=== PATIENT | female | born 1955 | race Two or more races ===

== ENCOUNTER 2016-05-18 08:46 | Emergency (ER) | payer SELFPAY ==
--- NOTE | 2016-05-18 10:33 | ER Document Report ---
ED Neck/Back Problem - General Chief Complaint: Back Pain Stated Complaint: BACK PAIN Time seen by provider: 10:28 Mode of Arrival: Ambulatory Information source: Patient Notes: The patient is a 61-year-old female with a history of hypertension, diabetes, diabetic neuropathy and trigeminal neuralgia. The patient presents to the emergency room with a 2 year history of low back pain radiating down the left leg. She has been evaluated by her primary care doctor ([facility]) but presents to the emergency room with persistent pain. Patient denies fever, chills. The patient denies numbness to the groin area. The patient denies urinary retention or urinary incontinence. The patient denies fecal incontinence. The patient does report having numbness to both feet distally and that this is not new. TRAVEL OUTSIDE OF THE [place] IN LAST 30 DAYS: No - HPI Patient complains to provider of: Pain Onset: Other - Last 2 years Where: Home Onset: Gradual Timing: Waxing and waning Quality of pain: Dull Severity: Moderate Pain Level: 2 Context: Bending Recent injury: No Associated symptoms: Lower back pain. denies: Incontinence, Motor loss, Unable to urinate, Upper back pain Exacerbated by: Sitting position Relieved by: Nothing Similar symptoms previously: Yes Recently seen / treated by doctor: Yes - Related Data Allergies/Adverse Reactions: Unable to Assess Allergy (Unverified 05/18/16 08:58) Past Medical History - General Information source: Patient - Social History Smoking Status: Never Smoker Cigarette use (# per day): No Chew tobacco use (# tins/day): No Frequency of alcohol use: None Drug Abuse: None Lives with: Family Family History: Reviewed & Not Pertinent Patient has suicidal ideation: No Patient has homicidal ideation: No - Past Medical History Cardiac Medical History: Reports: Hx Hypertension Endocrine Medical History: Reports: Hx Diabetes Mellitus Type 2 Renal/ Medical History: Denies: Hx Peritoneal Dialysis - Immunizations Hx Diphtheria, Pertussis, Tetanus Vaccination: No Review of Systems - Review of Systems Constitutional: denies: Chills, Fever EENT: No symptoms reported Cardiovascular: No symptoms reported Respiratory: No symptoms reported Gastrointestinal: No symptoms reported Genitourinary: No symptoms reported Female Genitourinary: No symptoms reported Musculoskeletal: See HPI Skin: No symptoms reported Hematologic/Lymphatic: No symptoms reported Neurological/Psychological: No symptoms reported Physical Exam - Vital signs Vitals: Temp Pulse Resp BP Pulse Ox 97.8 F 63 16 150/89 H 96 05/18/16 08:53 05/18/16 08:53 05/18/16 08:53 05/18/16 08:53 05/18/16 08:53 Notes: Physical exam: The patient is accompanied by a female family member. Translation is obtained through the family member. GENERAL: 61-year-old female, alert and oriented 3, no acute distress HEAD: Atraumatic, normocephalic. EYES: Pupils equal round and reactive to light, extraocular movements intact, sclera anicteric, conjunctiva are normal. ENT: TMs normal, nares patent, oropharynx clear without exudates. Moist mucous membranes. NECK: Normal range of motion, supple without lymphadenopathy or JVD. LUNGS: Breath sounds clear to auscultation bilaterally and equal. No wheezes rales or rhonchi. HEART: Regular rate and rhythm without murmurs, rubs or gallops. ABDOMEN: Soft, normoactive bowel sounds. No tenderness to palpation. No guarding, no rebound. No masses appreciated. EXTREMITIES: Normal range of motion, no pitting or edema. No clubbing or cyanosis. NEUROLOGICAL: Cranial nerves II through XII grossly intact. Motor 5 over 5, sensory reveals some subjective numbness in a stocking distribution to the lower legs, reflexes are symmetrical, plantars are downgoing,. PSYCH: Normal mood, normal affect. SKIN: Warm, Dry, normal turgor, no rashes or lesions noted. The patient does have good pulses distally and good cap refill to the feet. Course - Vital Signs Vital signs: Temp Pulse Resp BP Pulse Ox 97.6 F 61 20 148/95 H 97 05/18/16 13:04 05/18/16 13:04 05/18/16 13:04 05/18/16 13:04 05/18/16 13:04 Discharge - Discharge Clinical Impression: acute exacerbation of chronic back pain, radiculopathy Condition: Stable Disposition: HOME, SELF-CARE Instructions: Warm Packs ([facility]), Oral Narcotic Medication ([facility]), Low Back Pain ( [facility]) Additional Instructions: Recommendations: Take pain medicine as prescribed. This is a narcotic and can make you constipated so take a stool softener with the pain medicine. See the narcotic instructions below. Heating pads to the lower back Follow-up with a back surgeon in [place] for evaluation of your back pain. You may require an outpatient MRI and then may be some nonsurgical interventions. Dr. Shiva Linn ([facility]) Office number: [phone] [address] [place] [address] The pain medicine you're taking prescribed as a narcotic. There are several important things you should know about this medicine: 1. This medicine contains Tylenol: It is important that you do not take Tylenol (or acetaminophen) while on this medicine. Tylenol is metabolized by the liver and taking too much Tylenol (acetaminophen) can lay to liver damage and even liver failure. 2. Taking narcotics for too long can lead to physical and mental dependence. Take this medicine only if really needed and in the lowest quantity to achieve pain relief. 3. Do not drink alcohol while on this medicine. Alcohol interacts with narcotics and the combination can be dangerous. 4. Do not drive or operate machinery while on this medicine. 5. Narcotics do cause constipation, so drink plenty of fluids and daily stool softeners. Prescriptions: Docusate Sodium [Colace 100 mg Capsule] 100 mg PO DAILY #30 capsule Oxycodone HCl/Acetaminophen [Percocet 5-325 mg Tablet] 1 - 2 tab PO ASDIR PRN # 25 tablet PRN Reason:
[2016-05-18 13:08] VITALS: BP 148/95
== END 2016-05-18 13:06 | disposition home or self-care (01) ==
LOC: ER 08:46
DX: G89.29 Other chronic pain (principal); M54.9 Dorsalgia, unspecified; M54.10 Radiculopathy, site unspecified; I10 Essential (primary) hypertension; E11.9 Type 2 diabetes mellitus without complications
CPT/HCPCS: 72110; 99283

== ENCOUNTER → 2016-06-08 | Outpatient (CLI) | payer MEDICAID ==
[2016-06-08 09:31] LABS: ABSOLUTE EOSINOPHILS # (AUTO) 0.2 10^3/uL (0.0-0.6); ABSOLUTE LYMPHOCYTES (AUTO) 1.6 10^3/uL (0.5-4.7); ABSOLUTE MONOCYTES (AUTO) 0.4 10^3/uL (0.1-1.4); ABSOLUTE NEUT (AUTO) 4.6 10^3/uL (1.7-8.2); BASOPHILS % (AUTO) 0.7 % (0-2); EOSINOPHILS % (AUTO) 2.4 % (0-6); HEMATOCRIT 40.6 % (36.0-47.0); HEMOGLOBIN 13.4 g/dL (12.0-15.5); HGB HCT DIFFERENCE -0.4; LYMPHOCYTES % (AUTO) 23.1 % (13-45); MEAN CORPUSCULAR HEMOGLOBIN 29.2 pg (27.0-33.4); MEAN CORPUSCULAR HGB CONC 33.1 g/dL (32.0-36.0); MEAN CORPUSCULAR VOLUME 88 fl (80-97); MONOCYTES % (AUTO) 6.2 % (3-13); RED BLOOD COUNT 4.61 10^6/uL (3.72-5.28); RED CELL DISTRIBUTION WIDTH 14.4 % (11.5-14.0); SEGMENTED NEUTROPHILS % (AUTO) 67.6 % (42-78); WHITE BLOOD COUNT 6.8 10^3/uL (4.0-10.5)
[2016-06-08 10:06] LABS: ALANINE AMINOTRANSFERASE 53 U/L (9-52); ALBUMIN 4.2 g/dL (3.5-5.0); ALKALINE PHOSPHATASE 103 U/L (38-126); ANION GAP 13 (5-19); ASPARTATE AMINO TRANSFERASE 41 U/L (14-36); BILIRUBIN,DIRECT 0.3 mg/dL (0.0-0.4); BILIRUBIN,TOTAL 0.8 mg/dL (0.2-1.3); BLOOD UREA NITROGEN 13 mg/dL (7-20); CALCIUM 9.5 mg/dL (8.4-10.2); CARBON DIOXIDE 27 mmol/L (22-30); CHLORIDE 105 mmol/L (98-107); CREATININE RESULT 0.72 mg/dL (0.52-1.25); Direct HDL 75 mg/dL (>40); GLUCOSE 120 mg/dL (75-110); POTASSIUM 4.3 mmol/L (3.6-5.0); SODIUM 145.1 mmol/L (137-145); TOTAL PROTEIN 7.2 g/dL (6.3-8.2); TRIGLYCERIDES 112 mg/dL (<150)
[2016-06-08 10:17] LABS: DIRECT LDL 109 mg/dL (<100)
== END ==
LOC: OD 08:55
PROVIDERS: ATTEND Family Medicine Geriatric Medicine
DX: E11.9 Type 2 diabetes mellitus without complications (principal); I10 Essential (primary) hypertension; E78.5 Hyperlipidemia, unspecified; R51 Headache; Z79.899 Other long term (current) drug therapy
CPT/HCPCS: 36415; 80053; 80061; 82043; 82570; 83036; 84443; 85025

== ENCOUNTER → 2016-06-25 | Outpatient (CLI) | payer MEDICAID ==
[2016-06-25 11:30] LABS: ALANINE AMINOTRANSFERASE 46 U/L (9-52); ASPARTATE AMINO TRANSFERASE 38 U/L (14-36)
== END ==
LOC: OD 09:35
PROVIDERS: ATTEND Family Medicine Geriatric Medicine
DX: Z79.899 Other long term (current) drug therapy (principal)
CPT/HCPCS: 36415; 84450; 84460

== ENCOUNTER → 2017-08-09 | Outpatient (CLI) | payer SELFPAY ==
[2017-08-09 11:07] LABS: ABSOLUTE EOSINOPHILS # (AUTO) 0.1 10^3/uL (0.0-0.6); ABSOLUTE LYMPHOCYTES (AUTO) 1.8 10^3/uL (0.5-4.7); ABSOLUTE MONOCYTES (AUTO) 0.3 10^3/uL (0.1-1.4); ABSOLUTE NEUT (AUTO) 2.5 10^3/uL (1.7-8.2); EOSINOPHILS % (AUTO) 2.3 % (0-6); HEMOGLOBIN 13.3 g/dL (12.0-15.5); LYMPHOCYTES % (AUTO) 37.2 % (13-45); MEAN CORPUSCULAR HEMOGLOBIN 29.2 pg (27.0-33.4); MEAN CORPUSCULAR HGB CONC 33.2 g/dL (32.0-36.0); MEAN CORPUSCULAR VOLUME 88 fl (80-97); MONOCYTES % (AUTO) 6.6 % (3-13); PLATELET COUNT 145 10^3/uL (150-450); RED BLOOD COUNT 4.55 10^6/uL (3.72-5.28); RED CELL DISTRIBUTION WIDTH 14.7 % (11.5-14.0); SEGMENTED NEUTROPHILS % (AUTO) 52.9 % (42-78); TOTAL CELLS COUNTED % (AUTO) 100 %; WHITE BLOOD COUNT 4.8 10^3/uL (4.0-10.5)
--- NOTE | 2017-08-09 11:08 | RADIOLOGY REPORT (SQ) ---
EXAM DESCRIPTION: KNEE LEFT 4 VIEWS COMPLETED DATE/TIME: 08/09/2017 10:55 am REASON FOR STUDY: PAIN IN LEFT KNEE M25.562 PAIN IN LEFT KNEE COMPARISON: None. NUMBER OF VIEWS: Four views. TECHNIQUE: AP, lateral, and both oblique radiographic images acquired of the left knee. LIMITATIONS: None. FINDINGS: MINERALIZATION: Normal. BONES: No acute fracture or dislocation. No worrisome bone lesions. JOINT: There is narrowing of the medial joint compartment with marginal osteophytes. Large posterior patellar spurs are present. There is no joint effusion. SOFT TISSUES: No soft tissue swelling. No radio-opaque foreign body. OTHER: No other significant finding. IMPRESSION: Degenerative joint disease in the medial and patellofemoral compartments. TECHNICAL DOCUMENTATION: JOB ID: [id number] [employer]- All Rights Reserved Reading location - IP/workstation name: [email or web address]
[2017-08-09 11:37] LABS: ALANINE AMINOTRANSFERASE 35 U/L (9-52); ALBUMIN 3.9 g/dL (3.5-5.0); ALKALINE PHOSPHATASE 92 U/L (38-126); AMYLASE 67 U/L (30-110); ANION GAP 11 (5-19); ASPARTATE AMINO TRANSFERASE 29 U/L (14-36); BILIRUBIN,DIRECT 0.3 mg/dL (0.0-0.4); BILIRUBIN,TOTAL 0.3 mg/dL (0.2-1.3); BLOOD UREA NITROGEN 17 mg/dL (7-20); CALCIUM 9.4 mg/dL (8.4-10.2); CARBON DIOXIDE 27 mmol/L (22-30); CHLORIDE 110 mmol/L (98-107); CHOLESTEROL 181.99 mg/dL (0-200); GLUCOSE 125 mg/dL (75-110); LIPASE 232.8 U/L (23-300); POTASSIUM 4.7 mmol/L (3.6-5.0); SODIUM 147.7 mmol/L (137-145); TOTAL PROTEIN 6.9 g/dL (6.3-8.2); TRIGLYCERIDES 79 mg/dL (<150); URIC ACID 5.1 mg/dL (2.5-7.5)
[2017-08-09 11:48] LABS: DIRECT LDL 88 mg/dL (<100)
[2017-08-10 11:38] LABS: CREATININE URINE 107.7 mg/dL (Not Estab.); MICROALBUMIN URINE 39.9 ug/mL (Not Estab.)
== END ==
LOC: OD 10:14
PROVIDERS: ATTEND Family Medicine Geriatric Medicine
DX: M25.562 Pain in left knee (principal); R10.11 Right upper quadrant pain; I10 Essential (primary) hypertension; E78.5 Hyperlipidemia, unspecified; M17.12 Unilateral primary osteoarthritis, left knee
CPT/HCPCS: 36415; 80053; 80061; 82043; 82150; 82570; 82607; 83036; 83690; 84443; 84550; 85025

== ENCOUNTER 2020-04-04 12:39 | Emergency (ER) | payer SELFPAY ==
--- NOTE | 2020-04-04 13:33 | ER Document Report ---
ED Medical Screen (RME) - General Chief Complaint: Upper Abdominal Pain Stated Complaint: DIZZINESS,BREATHING PROBLEM Time Seen by Provider: 04/04/20 13:28 Primary Care Provider: DENZEL REGAN MD [Primary Care Provider] - Follow up as needed Mode of Arrival: Ambulatory Information source: Patient, Relative Notes: HPI; 65 y/o female presents to the emergency room with her daughter in law complaining of right sided chest and abdomnal pain for the past 2 days. Describes it as tightness, complains of nausea no vomiting, no fevers no COVID exposure. No medications for symptoms. PE: alert and oriented x 3. Lungs: CTA without rales, rhonchi or wheezing. Heart: irregular rate and rhythm without murmurs, rubs or gallops. I have greeted and performed a rapid initial assessment of this patient. A comprehensive ED assessment and evaluation of the patient, analysis of test results and completion of the medical decision making process will be conducted by additional ED providers. I have specifically instructed the patient or family members with the patient to immediately return to any nursing staff should anything change in the patient's condition or with their chief complaint. TRAVEL OUTSIDE OF THE [place] IN LAST 30 DAYS: No - Related Data Allergies/Adverse Reactions: No Known Drug Allergies Allergy (Verified 04/04/20 13:12) Past Medical History - Social History Chew tobacco use (# tins/day): No Frequency of alcohol use: None Drug Abuse: None - Past Medical History Cardiac Medical History: Reports: Hx Hypertension Endocrine Medical History: Reports: Hx Diabetes Mellitus Type 2 Renal/ Medical History: Denies: Hx Peritoneal Dialysis - Immunizations Hx Diphtheria, Pertussis, Tetanus Vaccination: No Physical Exam - Vital signs Vitals: Temp Pulse Resp BP Pulse Ox 98.4 F 111 H 20 119/69 94 04/04/20 12:48 04/04/20 12:48 04/04/20 12:48 04/04/20 12:48 04/04/20 12:48 Course - Vital Signs Vital signs: Temp Pulse Resp BP Pulse Ox 98.4 F 111 H 20 119/69 94 04/04/20 12:48 04/04/20 12:48 04/04/20 12:48 04/04/20 12:48 04/04/20 12:48 Doctor's Discharge - Discharge Referrals: DENZEL REGAN MD [Primary Care Provider] - Follow up as needed
[2020-04-04 13:56] LABS: HEMATOCRIT 40.6 % (36.0-47.0); INTERNATIONAL RATION (INR) 1.01; MEAN CORPUSCULAR HEMOGLOBIN 30.1 pg (27.0-33.4); MEAN CORPUSCULAR HGB CONC 34.5 g/dL (32.0-36.0); MEAN CORPUSCULAR VOLUME 87 fl (80-97); PLATELET COUNT 122 10^3/uL (150-450); PROTHROMBIN TIME 13.5 SEC (11.4-15.4); RED BLOOD COUNT 4.66 10^6/uL (3.72-5.28); RED CELL DISTRIBUTION WIDTH 14.6 % (11.5-14.0); WHITE BLOOD COUNT 3.4 10^3/uL (4.0-10.5)
--- NOTE | 2020-04-04 14:05 | RADIOLOGY REPORT (SQ) ---
EXAM DESCRIPTION: CHEST 2 VIEWS IMAGES COMPLETED DATE/TIME: 04/04/2020 1:47 pm REASON FOR STUDY: chest pain COMPARISON: None. EXAM PARAMETERS: NUMBER OF VIEWS: two views TECHNIQUE: Digital Frontal and Lateral radiographic views of the chest acquired. RADIATION DOSE: NA LIMITATIONS: none FINDINGS: LUNGS AND PLEURA: Mild interstitial prominence. No focal infiltrates, masses or pneumotho rax. No pleural effusion. MEDIASTINUM AND HILAR STRUCTURES: No masses or contour abnormalities. HEART AND VASCULAR STRUCTURES: Heart normal size. No evidence for failure. BONES: No acute findings. Old rib fractures. Degenerative changes in the spine HARDWARE: None in the chest. OTHER: No other significant finding. IMPRESSION: NO ACUTE RADIOGRAPHIC FINDING IN THE CHEST. TECHNICAL DOCUMENTATION: JOB ID: [id number] 2010 [email or web address]- All Rights Reserved Reading location - IP/workstation name: [email or web address]
[2020-04-04 14:10] LABS: ALBUMIN 3.4 g/dL (3.5-5.0); ALKALINE PHOSPHATASE 81 U/L (38-126); ANION GAP 7 (5-19); ASPARTATE AMINO TRANSFERASE 62 U/L (14-36); BILIRUBIN,DIRECT 0.4 mg/dL (0.0-0.4); BILIRUBIN,TOTAL 0.9 mg/dL (0.2-1.3); BLOOD UREA NITROGEN 17 mg/dL (7-20); CALCIUM 8.6 mg/dL (8.4-10.2); CARBON DIOXIDE 29 mmol/L (22-30); CHLORIDE 100 mmol/L (98-107); GLUCOSE 130 mg/dL (75-110); POTASSIUM 3.4 mmol/L (3.6-5.0); TOTAL PROTEIN 6.5 g/dL (6.3-8.2)
[2020-04-04 14:19] LABS: ABSOLUTE LYMPHOCYTES# (MANUAL) 1.3 10^3/uL (0.5-4.7); ABSOLUTE MONOCYTES # (MANUAL) 0.4 10^3/uL (0.1-1.4); BASOPHILS % (MANUAL) 0 % (0-2); EOSINOPHILS % (MANUAL) 0 % (0-6); LYMPHOCYTES % (MANUAL) 32 % (13-45); MONOCYTES % (MANUAL) 12 % (3-13); PLATELET COMMENT DECREASED; RBC MORPHOLOGY COMMENT NORMO-CYTIC/CHROMIC; SEGMENTED NEUTROPHILS % (MAN) 51 % (42-78); TOTAL CELLS COUNTED 100
--- NOTE | 2020-04-04 14:24 | ER Document Report ---
ED GI/ - General Chief Complaint: Upper Abdominal Pain Stated Complaint: DIZZINESS,BREATHING PROBLEM Time Seen by Provider: 04/04/20 13:28 Primary Care Provider: DENZEL REGAN MD [COMMUNITY BASED STAFF] - Follow up as needed Mode of Arrival: Ambulatory Notes: CHIEF COMPLAINT: Cough, nausea, right chest pain, shortness of breath HPI: 65-year-old female who is [place] with daughter translating presenting for multiple complaints. Patient has had cough with some right-sided chest pain and shortness of breath over the last week. No fever. Developed some nausea with one episode of vomiting yesterday. Reports pain in the right upper quadrant region. Developed a generalized rash last night. The rash is itchy. ROS: See HPI - all other systems were reviewed and are otherwise negative Constitutional: no fever Eyes: no drainage, no blurred vision ENT: no runny nose, no sore throat Cardiovascular: + chest pain Resp: + SOB, + cough GI: no vomiting, no diarrhea, no abdominal pain : no dysuria Integumentary: + rash Allergy: no hives Musculoskeletal: no extremity pain or swelling Neurological: no numbness/tingling, no weakness MEDICATIONS: I agree with the patient medications as charted by the RN. ALLERGIES: I agree with the allergies as charted by the RN. PAST MEDICAL HISTORY/PAST SURGICAL HISTORY: Reviewed and agree as charted by RN. SOCIAL HISTORY: Reviewed and agree as charted by RN. FAMILY HISTORY: No significant familial comorbid conditions directly related to patient complaint EXAM: Reviewed vital signs as charted by RN. CONSTITUTIONAL: Alert and oriented and responds appropriately to questions. Well-appearing; well-nourished HEAD: Normocephalic; atraumatic EYES: PERRL; Conjunctivae clear, sclerae non-icteric ENT: normal nose; no rhinorrhea; moist mucous membranes; pharynx without lesions noted, no uvula edema or deviation, no tonsillar hypertrophy, phonation normal NECK: Supple without meningismus; non-tender; no cervical lymphadenopathy, no m asses CARD: RRR; no murmurs, no clicks, no rubs, no gallops; symmetric distal pulses RESP: Normal chest excursion without splinting or tachypnea; breath sounds clear and equal bilaterally; no wheezes, no rhonchi, no rales, pulse oximetry 97% on room air not hypoxic ABD/GI: Obese, normal bowel sounds; non-distended; soft, mild tenderness right upper quadrant mild tenderness right lower quadrant on palpation, no rebound, no guarding; no palpable organomegaly or masses. BACK: The back appears normal and is non-tender to palpation, there is no CVA tenderness EXT: Normal ROM in all joints; non-tender to palpation; no cyanosis, no effusions, no edema SKIN: Normal color for age and race; warm; dry; good turgor; there is a diffuse scattered erythematous rash with some excoriation secondary to scratching 65-year-old female presenting for evaluation of cough shortness of breath and right chest pain NEURO: Moves all extremities equally; Motor and sensory function intact PSYCH: The patient's mood and manner are appropriate. Grooming and personal hygiene are appropriate. MDM: 65-year-old female presenting with cough shortness of breath right chest pain with cough over the last week. Not hypoxic. Also with vague abdominal pain. No fever here. Will obtain baseline screening labs including cardiac labs. Will obtain chest CT to evaluate for PE. Chest x-ray was read as normal by radiologist although given her symptoms I am concerned for pneumonia or Covid. She has vague abdominal complaints. Will obtain a CT of the abdomen to ensure we are not missing a surgical or infectious process. Diffuse rash that is vague in nature, does not appear urticarial. Is not shingles. Difficult to ascertain given the excoriation from scratching. discussed with Dr. Myers, attending The patient was evaluated during the global COVID-19 pandemic and that diagnosis was suspected/considered upon their initial presentation. Their evaluation, treatment and testing was consistent with current guidelines for patients who present with complaints or symptoms that may be related to COVID-19 TRAVEL OUTSIDE OF THE [place] IN LAST 30 DAYS: No - Related Data Allergies/Adverse Reactions: No Known Drug Allergies Allergy (Verified 04/04/20 13:12) Past Medical History - General Information source: Patient, Relative - Social History Smoking Status: Never Smoker Chew tobacco use (# tins/day): No Frequency of alcohol use: None Drug Abuse: None Family History: Reviewed & Not Pertinent - Past Medical History Cardiac Medical History: Reports: Hx Hypertension Endocrine Medical History: Reports: Hx Diabetes Mellitus Type 2 Renal/ Medical History: Denies: Hx Peritoneal Dialysis - Immunizations Hx Diphtheria, Pertussis, Tetanus Vaccination: No Physical Exam - Vital signs Vitals: Temp Pulse Resp BP Pulse Ox 98.4 F 111 H 20 119/69 94 04/04/20 12:48 04/04/20 12:48 04/04/20 12:48 04/04/20 12:48 04/04/20 12:48 Course - Re-evaluation Re-evalutation: 04/04/20 17:[address] suspicious for possible Covid pneumonia. Patient has a Covid test pending. She is not hypoxic. She has cholelithiasis. Do not suspect she has cholecystitis. Will place on albuterol inhaler for cough and wheezing. Will place on antibiotics, I discussed this with the patient through her daughter at length and she verbalizes understanding 04/04/20 18:[address] Myers, attending - Vital Signs Vital signs: Temp Pulse Resp BP Pulse Ox 98.4 F 111 H 20 119/69 94 04/04/20 12:48 04/04/20 12:48 04/04/20 12:48 04/04/20 12:48 04/04/20 12:48 - Laboratory Results Result Diagrams: 04/04/20 13:39 04/04/20 13:39 Laboratory Results Interpreted: 04/04/20 04/04/20 13:39 13:39 WBC 3.4 L RDW 14.6 H Plt Count 122 L Sodium 135.9 L Potassium 3.4 L Est GFR (MDRD) Non-Af 58 L Glucose 130 H AST 62 H ALT 36 H Albumin 3.4 L Lipase 318.2 H Critical Laboratory Results Reviewed: No Critical Results - Radiology Results Critical Radiology Results Reviewed: No Critical Results Discharge - Discharge Clinical Impression: Person under investigation for COVID-19 Pneumonia Qualifiers: Pneumonia type: due to unspecified organism Laterality: bilateral Lung location: unspecified part of lung Qualified Code(s): J18.9 - Pneumonia, unspecified organism Cholelithiasis Qualifiers: Cholelithiasis location: gallbladder Cholecystitis presence: without cholecystitis Biliary obstruction: without biliary obstruction Qualified Code(s): K80.20 - Calculus of gallbladder without cholecystitis without obstruction Condition: Stable Disposition: HOME, SELF-CARE Instructions: COVID-19 Guidance for Persons Under Investigation Additional Instructions: It was noted on your CT imaging today that you have pneumonia in both lungs. It is also suspected that you have a Covid infection self quarantine at home pending your test results which may take 2 to 5 days you should receive notification from the hospital about your test result. It was also noted that you have a gallstone in your gallbladder. If you develop worsening right upper quadrant pain or fever return for reevaluation. Take the medications as prescribed, use the albuterol inhaler 2 puffs every 4 hours as needed for cough or shortness of breath Prescriptions: Albuterol Sulfate [Proair HFA Inhalation Aerosol 8.5 gm MDI] 2 puff IH Q4H PRN #1 mdi PRN Reason: Azithromycin [Zithromax 250 mg Tablet] 250 mg PO ASDIR PRN #6 tablet PRN Reason: Referrals: DENZEL REGAN MD [COMMUNITY BASED STAFF] - Follow up as needed OSWALD OCASIO MD [ACTIVE STAFF] - Follow up as needed
--- NOTE | 2020-04-04 15:03 | RADIOLOGY REPORT (SQ) ---
EXAM DESCRIPTION: U/S ABDOMEN LIMITED W/O DOP IMAGES COMPLETED DATE/TIME: 04/04/2020 11:45 am REASON FOR STUDY: ruq pain COMPARISON: None. TECHNIQUE: Dynamic and static grayscale images acquired of the abdomen and recorded on PACS. Additio nal selected color Doppler and spectral images recorded. LIMITATIONS: Portions of the abdominal structures are not fully visualized due to overlying bowel. FINDINGS: PANCREAS: Visualized portions are unremarkable. LIVER: Normal contour. Diffuse increased echogenicity compatible with steatosis. No suspicious live r lesion identified. LIVER VASCULATURE: Normal directional flow of the main portal vein. GALLBLADDER: Partially contracted. There is a shadowing gallstone in the gallbladder lumen. Gallbla dder wall is not significantly thickened. No pericholecystic fluid collections. ULTRASOUND-DETECTED GILBERT'S SIGN: Negative. INTRAHEPATIC DUCTS AND COMMON DUCT: CBD and intrahepatic ducts normal caliber. No filling defects. AORTA: Visualized portions are nonaneurysmal. Portion of the distal aorta is obscured. RIGHT KIDNEY: Normal size. Normal echogenicity. No solid or suspicious masses. No hydronephrosis. No calcifications. PERITONEAL AND RIGHT PLEURAL SPACE: No ascites or effusions. OTHER: No other significant findings. IMPRESSION: 1. Cholelithiasis in a partially contracted gallbladder. 2. Hepatic steatosis. TECHNICAL DOCUMENTATION: JOB ID: [id number] 2010 [employer]- All Rights Reserved Reading location - IP/workstation name: [email or web address]
[2020-04-04 15:48] LABS: APPEARANCE,URINE SLIGHTLY-CLOUDY; BILIRUBIN,URINE NEGATIVE (NEGATIVE); COLOR,URINE YELLOW; GLUCOSE, URINE NEGATIVE (NEGATIVE); KETONES,URINE NEGATIVE (NEGATIVE); LEUKOCYTE ESTERASE,URINE NEGATIVE (NEGATIVE); NITRITE,URINE NEGATIVE (NEGATIVE); PROTEIN,URINE NEGATIVE (NEGATIVE); URINE SPECIFIC GRAVITY 1.015; UROBILINOGEN,URINE NEGATIVE mg/dL (<2.0)
--- NOTE | 2020-04-04 16:44 | EKG REPORT ---
SEVERITY:- ABNORMAL ECG - ATRIAL FIBRILLATION, V-RATE 79-142 BORDERLINE T ABNORMALITIES, INFERIOR LEADS : Confirmed by: Balwinder Reyes MD 04-Apr-2020 16:43:51
[2020-04-04] MEDS ORDERED: CEFTRIAXONE 1 GM/D5W RTU 1 GM/50 ML RTUPB IV ONE (17:13)
[2020-04-04] MEDS ORDERED: DOXYCYCLINE HYCLATE 100 MG TABLET PO ONE (17:14)
--- NOTE | 2020-04-04 17:36 | RADIOLOGY REPORT (SQ) ---
EXAM DESCRIPTION: CT ABD/PELVIS WITH IV ONLY; CTA CHEST IMAGES COMPLETED DATE/TIME: 04/04/2020 2:07 pm REASON FOR STUDY: right abd pain; PE, right chest pain COMPARISON: Abdominal ultrasound an two-view chest same date TECHNIQUE: CT scan of the chest, abdomen and pelvis performed using helical scanning technique with dynamic intravenous contrast injection. Images reviewed with lung, soft tissue and bone windows. Re constructed coronal and sagittal MPR images reviewed. Additional 3 dimensional post-processing performed to develop Maximal Intensity Projection images (VT P). All images stored on PACS. All CT scanners at this facility use dose modulation, iterative reconstruction, and/or weight based d osing when appropriate to reduce radiation dose to as low as reasonably achievable (ALARA). [facility]: Dose Right [facility]: CareDose [facility]: Dose Right [facility]: Teradose 4D [facility]: [employer] CONTRAST TYPE AND DOSE: contrast/concentration: Isovue 350.00 mmol/ml; Total Contrast Delivered: 98. 1 ml; Total Saline Delivered: 22.0 ml Contrast bolus adequate for pulmonary arteries and aorta. RENAL FUNCTION: Creatinine 0.97 RADIATION DOSE: CT Rad equipment meets quality standard of care and radiation dose reduction techniq ues were employed. CTDIvol: 6.6 - 33.3 mGy. DLP: 4143 mGy-cm. . LIMITATIONS: Mild motion artifact. FINDINGS: CHEST: LUNGS AND PLEURA: Patchy airspace opacities in the bilateral lower lobes, right middle lobe and left greater than right upper lobes. opacities are slightly more pronounced peripherally and suspicious f or infection. No pleural effusion. No pneumothorax. AORTA AND GREAT VESSELS: No aneurysm. No dissection. HEART: No pericardial effusion. Coronary artery calcifications. PULMONARY ARTERIES: No filling defects in the main, right or left pulmonary arteries. No filling def ects in the visualized lobar, segmental or subsegmental pulmonary arteries. Some motion artifact zhang its evaluation of some of the distal branches. HILAR AND MEDIASTINAL STRUCTURES: Some mildly prominent lymph nodes are probably reactive. No bulky lymphadenopathy. HARDWARE: None in the chest. THYROID AND OTHER SOFT TISSUES: No masses. No adenopathy. BONES: No acute or significant finding. 3D MIPS: Confirm above findings. OTHER: No other significant finding. ABDOMEN AND PELVIS: LIVER: Some heterogeneous decreased density likely due to fatty infiltration. No suspicious liver le ron identified. SPLEEN: Borderline in size. No suspicious splenic lesion. PANCREAS: No masses. No significant calcifications. No adjacent inflammation or peripancreatic fluid collections. Pancreatic duct not dilated. GALLBLADDER: Cholelithiasis. No acute inflammation. ADRENAL GLANDS: No significant masses or asymmetry. RIGHT KIDNEY AND URETER: No solid masses. No significant calcifications. No hydronephrosis or hyd roureter. LEFT KIDNEY AND URETER: No solid masses. No significant calcifications. No hydronephrosis or hydr oureter. AORTA AND VESSELS: No aneurysm. No dissection. Renal arteries, SMA, celiac without stenosis. RETROPERITONEUM: No retroperitoneal adenopathy, hemorrhage or masses. BOWEL AND PERITONEAL CAVITY: No masses or inflammatory changes. No free fluid or peritoneal masses. APPENDIX: Normal. PELVIS: No mass. No free fluid. Normal bladder. ABDOMINAL WALL: No masses. No hernias. BONES: No significant or acute findings. OTHER: No other significant finding. IMPRESSION: 1. No visualized pulmonary embolism. 2. Bilateral patchy airspace opacities more pronounced in the periphery suspicious for infection. C orrelate with any recent history of COVID infection. Differential considerations include other infec tious and noninfectious etiologies. 3. Cholelithiasis. 4. Hepatic steatosis. COMMENT: Quality ID # [id number]: Final reports with documentation of one or more dose reduction techniques (e.g., Automated exposure control, adjustment of the mA and/or kV according to patient size, use of iterative reconstruction technique) TECHNICAL DOCUMENTATION: JOB ID: [id number] 2010 [employer]- All Rights Reserved Reading location - IP/workstation name: [email or web address]
[2020-04-04] MEDS ORDERED: METOPROLOL SUCCINATE 50 MG TAB.SR.24H PO SCH (19:00)
[2020-04-04 19:17] VITALS: BP 147/81
== END 2020-04-04 20:51 | disposition left against medical advice (07) ==
LOC: ER 12:39 → UNDOADMIN 18:38 → EH 18:38 → UNDODISIN 19:21 → EH 20:51
DX: U07.1 COVID-19 (principal); J12.82 Pneumonia due to coronavirus disease 2019; K80.20 Calculus of gallbladder without cholecystitis without obstruction; I48.91 Unspecified atrial fibrillation; R10.10 Upper abdominal pain, unspecified; R42 Dizziness and giddiness; R11.0 Nausea; R06.00 Dyspnea, unspecified; I10 Essential (primary) hypertension; E11.9 Type 2 diabetes mellitus without complications
CPT/HCPCS: 93005; 99285; 96365; 36415; 87040; 83690; 84443; 85025; 85610; 0241U; 80053; 81001; 84484; 71046; 76705; 71275; 74177; 93010; J0696; C9803